=== PATIENT | male | born 1940 | race Caucasian/White ===

== ENCOUNTER 2017-02-27 08:40 | Day surgery (SDC) | payer MEDICARE, BC ==
[~2017-02-27] VITALS: Ht 185.4 cm; Wt 79.4 kg
--- NOTE | ~2017-02-27 | OP ---
PATIENT NAME: ALEKSANDR SANCHEZ MEDICAL RECORD: [id number] :44 LOCATION:D.OPS ADMISSION DATE: SURGEON: ALEKSANDR DICKINSON MD DATE OF OPERATION: 02/27/2017 PREOPERATIVE DIAGNOSIS: Anal condyloma with high-grade dysplasia. POSTOPERATIVE DIAGNOSIS: Anal condyloma with high-grade dysplasia. PROCEDURES: 1. Anal evaluation under anesthesia. 2. Incisional biopsies of the anus. 3. Ablation of anal tissue with electrocautery. 4. Anal brushings. SURGEON: Aleksandr Dickinson MD. RADIUS CORNER MACHINE OPERATOR: None. BLOOD LOSS: Minimal. ANESTHESIA: General. COMPLICATIONS: None. OPERATIVE COURSE: The patient was conveyed to the operating room electively on 02/27/2017. General anesthesia was induced by anesthesia staff. The patient was placed in the lithotomy position. The anus and perianal areas were sterilely prepped and draped. U-shaped anal retractors were placed. Utilizing a cytology brush, circumferential brushings were obtained of the anus. This was placed in [facility] fluid and sent to pathology. I then carefully examined the anus. I saw no significant nodularity. There was some verrucous-appearing material that I biopsied utilizing a mediastinoscopy biopsy forceps. The biopsy site was made hemostatic with electrocautery. I then ablated additional anal tissue that I felt looked somewhat suspicious. There was no bleeding. A combination of Marcaine and steroid preparation were used to infiltrate the perianal tissues. A Gelfoam was applied within the anus and lower rectum. A topical anesthetic cream was applied to the external hemorrhoids. The patient was then extubated and conveyed to post-anesthesia care unit where he was in stable condition. However, he will be following up in my office in 2-3 weeks to discuss the results of the biopsies. TRANSINT:[id number] Voice Confirmation ID: [id number] DOCUMENT ID: [id number] OPERATIVE REPORT [id number] ALEKSANDR SANCHEZ ROBERT MD CC: MERA REED MD, GLADYS MURILLO MD and VIVI CAICEDO MD [id number] DICTATION DATE: 02/27/17 1535 DEPOT AGENT: 02/28/17 0123 [facility] 02/27/17 [id number] [place] [address]
--- NOTE | ~2017-02-27 | HP ---
PATIENT: ALEKSANDR SANCHEZ MEDICAL RECORD: [id number] ACCOUNT: [id number] LOCATION:NED : 42 ADMISSION DATE: 02/27/17 HISTORY AND PHYSICAL EXAMINATION HISTORY OF PRESENT ILLNESS: The patient had a biopsy of the anus, which revealed an anal condyloma with high-grade dysplasia. My plan is an anal evaluation under anesthesia with brushings as well as biopsies and then ablation of any suspicious-appearing tissue. The risks, possible complications and alternatives of the procedure were explained to the patient. He elects to proceed. The discussion specifically included, but was not limited to, a probable need for surveillance brushings in the future, the possible need for excisional biopsy, the possible need for radiation. PAST MEDICAL AND SURGICAL HISTORY: Total shoulder, BPH, also hypertension. HOME MEDICATIONS: Flomax and lisinopril. ALLERGIES: No known drug allergies. SOCIAL HISTORY: Nonsmoker. REVIEW OF SYSTEMS: Negative for CVA or seizures. Negative for diabetes or thyroid problems. Negative for renal disease or hepatitis. PHYSICAL EXAMINATION: GENERAL: The patient does not appear acutely ill. He does not appear chronically ill. VITAL SIGNS: Reviewed. HEAD: External ears appear normal. EYES: Extraocular movements are intact. NECK: Trachea is midline. CHEST: No intercostal retractions. PULMONARY: Nonlabored. No stridor. ABDOMEN: No peritonitis. IMPRESSION: Anal condyloma with high-grade dysplasia. PLAN: I had a discussion with the patient regarding how anal condylomata are transmitted. The plan is described above. TRANSINT:[id number] Voice Confirmation ID: [id number] DOCUMENT ID: [id number] ALEKSANDR DICKINSON MD CC: MERA REED MD, GLADYS MURILLO MD and VIVI CAICEDO MD [id number] DICTATION DATE: 02/27/17 1449 LABEL PASTER: 02/27/172008 [facility] 02/27/17 [place] [address]
[~2017-02-27 08:40] MED LIST: AMITIZA24 MCG PO; FLOMAX0.4 MG PO; LISINOPRIL10 MG PO
[2017-02-27 09:12] LABS: HEMOGLOBIN 14.2 g/dL (13.5-17.5); MCH 30.5 pg (26.0-34.0); MCHC 33.8 g/dL (31.0-37.0); MCV 90.3 fL (80.0-100.0); MEAN PLATELET VOLUME 9.2 fL (7.4-10.4); RBC 4.65 10x6/uL (4.20-6.10); RDW 13.3 % (11.5-14.5); WBC 6.3 10x3/uL (4.8-10.8)
[2017-02-27 09:29] VITALS: BP 124/70; Ht 185.4 cm; Wt 79.4 kg
--- NOTE | 2017-02-27 18:35 | NUR ---
1600--PT VOIDS WITHOUT DIFFICULTY, IV DC'D. PT UP TO DRESS. AISHA PONCE 161--DISCHARGE INSTRUCTIONS GIVEN, PT VERBALIZES UNDERSTANDING. PT OFF UNIT VIA WC. AISHA PONCE
== END 2017-02-27 16:15 | disposition home or self-care (01) ==
LOC: D.OPS 08:40 → D.PAN 09:30 → D.OPS 13:00
PROVIDERS: Anesthesiology
DX: A63.0 Anogenital (venereal) warts (principal); K62.82 Dysplasia of anus; K64.4 Residual hemorrhoidal skin tags; N40.0 Benign prostatic hyperplasia without lower urinary tract symptoms; I10 Essential (primary) hypertension; Z79.899 Other long term (current) drug therapy

== ENCOUNTER 2018-05-13 07:35 | Day surgery (SDC) | payer MEDICARE, BC ==
[~2018-05-13] VITALS: Ht 185.4 cm; Wt 80.9 kg
--- NOTE | ~2018-05-13 | OP ---
PATIENT NAME: SARBJIT SANCHEZ MEDICAL RECORD: [id number] :42 LOCATION:D.[facility] ADMISSION DATE: SURGEON: SARBJIT DICKINSON MD DATE OF OPERATION: 05/13/2018 PREOPERATIVE DIAGNOSES: History of anal condylomata with high-grade dysplasia. POSTOPERATIVE DIAGNOSES: History of anal condylomata with high-grade dysplasia. PROCEDURES: 1. Flexible proctoscopy with cold endoscopic biopsies. 2. Anal brushings for cytology. SURGEON: Sarbjit Dickinson MD FINISHER DENTURE: None. BLOOD LOSS: Minimal. ANESTHESIA: IV sedation. COMPLICATIONS: None. The risks, possible complications, and alternatives to the procedure were explained to the patient. He elects to proceed. ENDOSCOPIC COURSE: The patient was conveyed to the endoscopy suite electively on 05/13/2018. IV sedation was induced by the anesthesia staff. The patient was placed in the Juares position. A digital rectal examination was performed. Prostate was symmetric and without nodules. A colonoscope was inserted through the anus into the rectum. Retroflexed views were obtained. Cold endoscopic biopsies of the anus were performed. I then unretroflexed the scope and removed it under direct vision. I then took several cytology brushes and performed vigorous anal brushings. These were placed in cytology fluid and are sent to pathology for cytologic interpretation. The patient was then conveyed back to his outpatient room. TRANSINT:[id number] Voice Confirmation ID: [id number] DOCUMENT ID: [id number] SARBJIT DICKINSON MD at 1022 CC: VIVI CAICEDO [id number] DICTATION DATE: 05/13/18 1026 INSTRUCTIONAL RESOURCE TEACHER: 05/13/18 1203 [facility] 05/13/[address] [id number]
[2018-05-13 07:32] LABS: BASOPHILS 0.5 % (0-2); EOSINOPHILS 1.9 % (0-7); HEMATOCRIT 39.2 % (42.0-54.0); HEMOGLOBIN 13.3 g/dL (13.5-17.5); IMMATURE GRANULOCYTES 0.1 % (0-5); MCH 29.3 pg (26.0-34.0); MCHC 33.9 g/dL (31.0-37.0); MCV 86.3 fL (80.0-100.0); MEAN PLATELET VOLUME 8.5 fL (7.4-10.4); MONOCYTES 8.2 % (2-11); NEUTROPHILS 70.3 % (40-80); PLATELET COUNT 232 10x3/uL (130-400); RBC 4.54 10x6/uL (4.20-6.10); RDW 13.1 % (11.5-14.5); WBC 8.3 10x3/uL (4.8-10.8)
[2018-05-13 07:49] LABS: CALC OSMOLALITY 277 mosm/kg (275-300); CARBON DIOXIDE 28.8 mmol/L (21.0-32.0); CHLORIDE - SERUM 104 mmol/L (98-107); GLUCOSE 96 mg/dL (74-106); POTASSIUM - SERUM 4.4 mmol/L (3.5-5.1); SODIUM 139 mmol/L (136-145); UREA NITROGEN 13 mg/dL (7-18); eGFR NON AFRICAN AMERICAN 77 mL/min (90-120)
[2018-05-13] MEDS ORDERED: CYCLOBENZAPRINE5 MG PO (08:09)
[2018-05-13 08:15] VITALS: BP 138/78; Ht 185.4 cm; Wt 80.9 kg
[2018-05-13] MEDS ORDERED: ZANTAC150 MG PO (08:15)
== END 2018-05-13 11:45 | disposition home or self-care (01) ==
LOC: D.OPS 07:35
PROVIDERS: Anesthesiology
DX: A63.0 Anogenital (venereal) warts (principal); K63.5 Polyp of colon